=== PATIENT | male | born 1975 | race Caucasian/White ===

== ENCOUNTER 2017-07-13 01:44 | Emergency (ER) | payer MEDICAID ==
[~2017-07-13] VITALS: Ht 177.8 cm; Wt 103.6 kg
[2017-07-13 02:25] LABS: BASOPHILS # (AUTO) 0.05 K/uL (0.00-0.20); BASOPHILS % (AUTO) 0.4 % (0.0-2.0); EOSINOPHILS # (AUTO) 0.05 K/uL (0.00-0.70); EOSINOPHILS % (AUTO) 0.42 % (1.0-6.0); HEMATOCRIT 39.7 % (41-53); HEMOGLOBIN 13.8 g/dL (13.5-17.5); LYMPHOCYTES # (AUTO) 4.3 K/uL (1.0-4.8); LYMPHOCYTES % (AUTO) 36.5 % (22.0-44.0); MEAN CORPUSCULAR HEMOGLOBIN 30.9 pg (26.0-34.0); MEAN CORPUSCULAR HGB CONC 34.8 G/dL (31.0-37.0); MEAN CORPUSCULAR VOLUME 89 fL (80-100); MONOCYTES # (AUTO) 0.5 K/uL (0.1-1.0); MONOCYTES % (AUTO) 4.2 % (2.0-9.0); NEUTROPHILS # (AUTO) 6.8 K/uL (1.8-7.7); NEUTROPHILS % (AUTO) 58.5 % (40.0-70.0); PLATELET COUNT (AUTO) 265 K/uL (150-450); RED BLOOD CELL COUNT(AUTO) 4.47 MIL/uL (4.50-5.90); WHITE BLOOD COUNT (AUTO) 11.6 K/uL (4.5-11.0)
[2017-07-13 02:32] LABS: CALCIUM, TOTAL 8.6 mg/dL (8.8-10.5); POTASSIUM 3.6 mmol/L (3.5-5.1)
[2017-07-13 02:40] LABS: CREATININE 1.33 mg/dL (0.60-1.30)
[2017-07-13 02:46] LABS: ALBUMIN 3.9 g/dL (3.4-5.0); BILIRUBIN,TOTAL 0.4 mg/dL (0.1-1.0); TOTAL PROTEIN, SERUM 7.6 g/dL (6.4-8.2)
[2017-07-13 04:46] VITALS: BP 142/85
[2017-07-13] MEDS ORDERED: MAG HYDROX/AL HYDROX/SIMETH ES 30 ML SUSPENSION UDCUP PO ONE (05:30)
== END 2017-07-13 05:43 | disposition home or self-care (01) ==
LOC: EMS 01:45
DX: R07.89 Other chest pain (principal); F17.210 Nicotine dependence, cigarettes, uncomplicated; F10.129 Alcohol abuse with intoxication, unspecified; K29.70 Gastritis, unspecified, without bleeding; I10 Essential (primary) hypertension; F12.10 Cannabis abuse, uncomplicated
CPT/HCPCS: 36415; 71010; 80053; 83690; 84484; 85025; 93005; 99285; 99406; G0480

== ENCOUNTER 2023-08-02 01:23 | Emergency (ER) | payer MEDICAID, OTHER ==
[~2023-08-02] VITALS: Ht 177.8 cm; Wt 109.1 kg
[2023-08-02 01:33] VITALS: TEMP 98.7
[2023-08-02] MEDS ORDERED: KETOROLAC TROMETHAMINE 30 MG/ML VIAL IVP ONE (01:45)
[2023-08-02] MEDS ORDERED: IBUP-1493 PO (03:43)
[2023-08-02] MEDS ORDERED: HYDR-4723 PO (03:43)
[2023-08-02] MEDS ORDERED: HYDROmorphone HCL 2 MG/ML SYRINGE IM ONE (03:45)
[2023-08-02] MEDS ORDERED: ONDANSETRON HCL 4 MG/2 ML VIAL IVP ONE (03:45)
[2023-08-02] MEDS ORDERED: METH4TAB3 PO (03:50)
[2023-08-02] MEDS ORDERED: DEXAMETHASONE SOD PHOS 4 MG/ML 5 ML VIAL IVP ONE (04:00)
[2023-08-02] MEDS ORDERED: FentaNYL CITRATE PF 100 MCG/2 ML VIAL IVP ONE (04:00)
[2023-08-02 05:59] VITALS: BP 128/78; PULSE 80; RESP 17
== END 2023-08-02 06:15 | disposition home or self-care (01) ==
LOC: EMS 01:24
DX: M51.86 Other intervertebral disc disorders, lumbar region (principal); M54.16 Radiculopathy, lumbar region; M54.32 Sciatica, left side; F10.20 Alcohol dependence, uncomplicated; I10 Essential (primary) hypertension; F17.210 Nicotine dependence, cigarettes, uncomplicated; F12.90 Cannabis use, unspecified, uncomplicated; Z90.49 Acquired absence of other specified parts of digestive tract; Y90.9 Presence of alcohol in blood, level not specified
CPT/HCPCS: 99285; 96374; 96375; 72131; 82962; J1100; J3010; J1885; J2405

== ENCOUNTER 2023-08-04 12:27 | Emergency (ER) | payer OTHER ==
[~2023-08-04 12:27] MED LIST: HYDR-4723 PO; IBUP-1493 PO; METH4TAB3 PO
[2023-08-04] MEDS ORDERED: EPINEPHrine 1:10,000 [1 MG/10 ML] SYRINGE IVP ONE (12:29)
[2023-08-04] MEDS ORDERED: 0.9% SODIUM CHLORIDE 1,000 ML BAG IV ONE (12:29)
[2023-08-04] MEDS ORDERED: SODIUM BICARBONATE 50 MEQ/50 ML VIAL IV ONE (12:29)
== END 2023-08-04 17:30 ==
LOC: EMS 12:28
DX: I46.9 Cardiac arrest, cause unspecified (principal); F10.20 Alcohol dependence, uncomplicated; I10 Essential (primary) hypertension; F17.210 Nicotine dependence, cigarettes, uncomplicated; F12.90 Cannabis use, unspecified, uncomplicated; F15.90 Other stimulant use, unspecified, uncomplicated; Z90.49 Acquired absence of other specified parts of digestive tract
CPT/HCPCS: 99285; 99152; J0171; J3490; J7030